=== PATIENT | female | born 1940 | race Caucasian/White ===

== ENCOUNTER 2021-11-16 10:50 | Inpatient (IN) ==
[2021-11-16 11:28] LABS: Basophils # (auto) 0.01 K/uL (0-0.2); Basophils % (auto) 0.2 %; Hematocrit (blood only) 38.6 % (37-47); Hemoglobin 12.6 g/dL (12.0-16.0); Immature Granulocytes # (auto) 0.11 K/uL (0.00-0.02); Immature Granulocytes % (auto) 1.8 %; Lymphocytes # (auto) 0.64 K/uL (1.2-3.4); Lymphocytes % (auto) 10.6 %; Mean Corpuscular Hgb Conc 32.6 g/dL (32-36); Mean Corpuscular Volume 91.9 fL (80-100); Mean Platelet Volume 11.9 fL (7.4-10.4); Monocytes # (auto) 0.51 K/uL (0.11-0.59); Monocytes % (auto) 8.5 %; Neutrophils # (auto) 4.75 K/uL (1.4-6.5); Neutrophils % (auto) 78.9 %; Nucleated RBC # (auto) 0.04 K/uL (0-0); Nucleated RBC % (auto) 0.7 %; Platelet Count 211 K/uL (130-400); RDW Coefficient of Variation 15.5 % (11.5-14.5); RDW Standard Deviation 52.5 fL (36.4-46.3); White Blood Count 6.02 K/uL (4.8-10.8)
[2021-11-16 11:41] LABS: INR 1.2 (0.9-1.1); Partial Thromboplastin Ratio 1.1; Partial Thromboplastin Time 29.6 Seconds (21.0-31.0); Prothrombin Time 12.2 Seconds (9.0-12.0)
--- NOTE | 2021-11-16 11:45 | XRay Report ---
XR chest 1V portable HISTORY: 81 years-old Female Resp sx c/w COVID-19 acute shortness of breath. COVID Positive. COMPARISON: None TECHNIQUE: Portable AP view of the chest FINDINGS: The cardiac silhouette is enlarged. Interstitial coarsening with patchy multifocal bilateral alveolar opacities. No pneumothorax or large pleural effusion. Degenerative changes of the shoulders and spin e. IMPRESSION: Cardiomegaly with moderate multifocal bilateral airspace opacities suggestive of viral pn eumonia. ACT 112: Negative or not required by law. The above report was generated using voice recognition software. It may contain grammatical, syntax o r spelling errors. Electronically signed by: Heriberto Hernández M.D. 11/16/2021 11:44 AM
[2021-11-16 12:02] LABS: Alanine Aminotransferase 79 U/L (7-52); Albumin Globulin Ratio 1.1 (0.9-2); Albumin Level 3.6 gm/dl (3.4-5.0); Alkaline Phosphatase 71 U/L (34-104); Anion Gap 11 (3-11); Aspartate Aminotransferase 107 U/L (13-39); BUN Creatinine Ratio 36.6 (10-20); Blood Urea Nitrogen 48 mg/dl (6-23); Calcium 8.7 mg/dl (8.5-10.1); Carbon Dioxide 27 mmol/L (21-32); Chloride 98 mmol/L (98-107); Est GFR (African American) 43.8 ml/min; Est GFR (Non-African American) 37.8 ml/min; Globulin 3.3 gm/dl (2.5-4.0); Glucose 160 mg/dl (70-99); Magnesium 2.3 mg/dl (1.7-2.4); Potassium 3.8 mmol/L (3.5-5.1); Sodium 136 mmol/L (136-145); Total Protein 6.9 gm/dl (6.0-8.3)
--- NOTE | 2021-11-16 12:02 | Emergency Department Note ---
History of Present Illness General Chief complaint: Shortness of Breath/Dyspnea Stated complaint: PULSE OX LEVEL 77, DR SPENCE Time Seen by Provider: 11/16/21 11:43 Source: patient, family (Son who is at the bedside), RN notes reviewed and old records reviewed Mode of arrival: ambulatory Limitations: no limitations History of Present Illness This patient is a 81-year-old female who is brought in after being hypoxemic. Her son has been checking her pulse ox at home and said it was at from 77-92 averaging about 85. Everybody in the house just got over a cold nobody was actually tested for COVID. She has had a cough off and on. In triage her O2 sat was 81% she was placed on 2 L nasal cannula and now is in the high 90s and says she feels fine. Her son thinks she may have forgotten to take some of her medications for her heart failure as she has been sick. She did not have the COVID-vaccine. She has had no weight gain or lower extremity pain or swelling. Denies chest pain. Denies fever although she does have a low-grade temperature 37.6 here. No diarrhea no vomiting. She is followed by Dr. Arana from a cardiac standpoint and her primary care physician is [facility] physician rust. Denies that she is on any blood thinners. Home Medications Medication Instructions Recorded Confirmed Type furosemide 40 mg tablet 40 mg PO QAM #90 tab 10/18/21 11/16/21 Rx levothyroxine 75 mcg tablet 75 mcg PO DAILY #90 tab 10/18/21 11/16/21 Rx (Synthroid) metoprolol succinate 50 mg 50 mg PO DAILY #90 tab 10/18/21 11/16/21 Rx tablet,extended release 24 hr sacubitril 24 mg-valsartan 26 mg 1 tab PO BID #180 tab 10/18/21 11/16/21 Rx tablet (Entresto) Allergies Allergy/AdvReac Type Severity Reaction Status Date / Time peanut Allergy Severe Anaphylaxis Verified 11/16/21 13:16 milk Allergy Intermediate Bloating/Di Verified 11/16/21 13:16 ahrea alcohol Allergy Mild skin Verified 11/16/21 13:16 flushing, red rash Iodinated Contrast Media Allergy Unknown Unknown Verified 11/16/21 13:16 Penicillins AdvReac Intermediate GI reaction Verified 11/16/21 13:16 Past Med/Surg History Medical History (Updated 11/16/21 @ 15:03 by Nikkie Abdalla PA-C) Gallbladder attack Heart failure with reduced ejection fraction Hypertension Left bundle branch block Moderate aortic regurgitation Moderate aortic stenosis Moderate tricuspid regurgitation Nonischemic cardiomyopathy EF 25-30% NSVT (nonsustained ventricular tachycardia) Surgical History H/O: hysterectomy Hx of cholecystectomy Hx of tonsillectomy Family History Other Alzheimer disease Denies family history of Ovarian cancer Prostate cancer Myocardial infarction Breast cancer Colorectal cancer Social History Smoking Status: Never smoker Second Hand Exposure: Yes; Hx Alcohol Use: No Hx Substance Use: No Visual Impairment: Partially Limited Hearing Ability: Hard of Hearing Beliefs That Will Affect Care: None marital status: / Current Living Situation: Family Current Living Situation Comment: lives with [employer] current occupational status: other current occupation: [employer] How many Children do You have: 1 How many Children do You have Comment: 2 boys Feels Safe at Home: Yes Childhood Exposure to Second-Hand Smoke: Yes during the past year weight has: decreased > 10 lbs Dental Care, Regularly: Yes Physical Activity Frequency: Does not Exercise Seatbelt Use: always Sunscreen Use: No Review of Systems A total of 10 systems reviewed and were otherwise negative Physical Exam Vital Signs Vital Signs - 24 hr 11/16/21 10:53 11/16/21 11:00 11/16/21 12:13 Temperature 37.6 C H Temperature Source Temporal Artery Scan Pulse Rate 98 H Pulse Rate from SpO2 Sensor Respiratory Rate 18 Respiratory Effort / Characteristics Non-Labored Respiratory Depth Normal Blood Pressure 120/92 Blood Pressure Mean 101 Pulse Oximetry 81 L 99 Oxygen Delivery Method Room Air Nasal Cannula Room Air Oxygen Flow Rate Sepsis Recent Fever Within 48 Hours No Sepsis New/Unexplained Change in Mental Status No Sepsis Action Taken by Nursing No Action Required Oxygen Flow Rate - Titration 2 Pulse Oximetry Post Tiitration 96 11/16/21 13:00 11/16/21 13:01 11/16/21 13:30 Temperature Temperature Source Pulse Rate 88 92 H 87 Pulse Rate from SpO2 Sensor 87 89 87 Respiratory Rate 23 25 H 21 Respiratory Effort / Characteristics Respiratory Depth Blood Pressure 146/88 H Blood Pressure Mean 107 Pulse Oximetry 98 97 96 Oxygen Delivery Method Nasal Cannula Nasal Cannula Nasal Cannula Oxygen Flow Rate 2 2 2 Sepsis Recent Fever Within 48 Hours Sepsis New/Unexplained Change in Mental Status Sepsis Action Taken by Nursing Oxygen Flow Rate - Titration Pulse Oximetry Post Tiitration 11/16/21 14:00 Temperature Temperature Source Pulse Rate 86 Pulse Rate from SpO2 Sensor 82 Respiratory Rate 20 Respiratory Effort / Characteristics Respiratory Depth Blood Pressure 145/113 H Blood Pressure Mean 123 Pulse Oximetry 91 Oxygen Delivery Method Nasal Cannula Oxygen Flow Rate 2 Sepsis Recent Fever Within 48 Hours Sepsis New/Unexplained Change in Mental Status Sepsis Action Taken by Nursing Oxygen Flow Rate - Titration Pulse Oximetry Post Tiitration General: Well developed well nourished older female who appears comfortable on supplemental oxygen in no acute distress, breathing comfortably on room air. Normal speech HEENT: Normal cephalic atraumatic. Pupils are equal round and reactive to light. Extraocular movements are intact. Oropharynx is pink with moist mucous membranes. No swelling of the mouth lips or tongue. Neck: Supple with a midline trachea. No meningeal signs or stiffness, no JVD or bruits. No Stridor. Chest: Clear to auscultation bilaterally with the exception of some crackles in the bases bilaterally but no increased work of breathing. Heart: Regular rate and rhythm without murmurs or gallops. Abdomen: Soft nontender, nondistended without rebound guarding or rigidity. Extremities: No cyanosis clubbing or edema. No calf tenderness or assymetry Spine/Back. Non tender to palpation. No CVA tenderness Skin: Good turgor without rashes. Neurologic exam: Cranial nerves two through 12 are intact. Motor and sensation are intact and symmetrical throughout. Course Administered Medications Remdesivir 200 mg/ Sodium (Chloride) 250 mls @ 125 mls/hr IV ONE STA; Protocol Stop: 11/16/21 15:40 Last Admin: 11/16/21 14:27 Dose: 125 mls/hr Documented by: [id number] Discontinued Medications Dexamethasone Sodium Phosphate (DexamethasonePf 10 Mg/Ml Vial) 6 mg IV NOW ONE Stop: 11/16/21 12:27 Last Admin: 11/16/21 12:38 Dose: 6 mg Documented by: [id number] Critical Care Time Critical Care Time: Yes Total Critical Care Time: 32 Due to the patient's hypoxemia, COVID, significant medical history is with needs for supplemental oxygen, IV medication, consultation, discussion with the family, I have personally spent greater than 32 minutes of critical care time in the direct management of this patient. This includes bedside care, interpretation of diagnostic studies, and testing, discussion with consultants, patient, and family members, and other required patient management activities. This 32 minutes is in excess of all separately billable procedures. Medical Decision Making Differential Diagnosis COVID, CHF, acute coronary syndrome, pneumonia, sepsis, electrolyte or metabolic abnormality Medical Records Attestation: I reviewed the patient's medical records. Home Medications Current Medication List: was personally reviewed by me Laboratory Data Attestation: I reviewed the patient's lab results. Result diagrams: 11/16/21 11:15 11/16/21 11:15 Lab Results 11/16/21 11/16/21 11/16/21 Range/Units 11:00 11:15 11:15 WBC 6.02 (4.8-10.8) K/uL RBC 4.20 (4.2-5.4) M/uL Hgb 12.6 (12.0-16.0) g/dL Hct 38.6 (37-47) % MCV 91.9 (80-100) fL MCH 30.0 (25-34) pg MCHC 32.6 (32-36) g/dL RDW Std Deviation 52.5 H (36.4-46.3) fL RDW Coeff of Keanu 15.5 H (11.5-14.5) % Plt Count 211 (130-400) K/uL MPV 11.9 H (7.4-10.4) fL Immature Gran % (Auto) 1.8 % Neut % (Auto) 78.9 % Lymph % (Auto) 10.6 % [place] % (Auto) 8.5 % Eos % (Auto) 0.0 % Baso % (Auto) 0.2 % Neut # (Auto) 4.75 (1.4-6.5) K/uL Lymph # (Auto) 0.64 L (1.2-3.4) K/uL [place] # (Auto) 0.51 (0.11-0.59) K/uL Eos # (Auto) 0.00 (0-0.5) K/uL Baso # (Auto) 0.01 (0-0.2) K/uL Immature Gran # (Auto) 0.11 H (0.00-0.02) K/uL Absolute Nucleated RBC 0.04 H (0-0) K/uL Nucleated RBC % (auto) 0.7 % PT 12.2 H (9.0-12.0) Seconds INR 1.2 H (0.9-1.1) APTT 29.6 (21.0-31.0) Seconds PTT Ratio 1.1 Sodium (136-145) mmol/L Potassium (3.5-5.1) mmol/L Chloride (98-107) mmol/L Carbon Dioxide (21-32) mmol/L Anion Gap (3-11) BUN (6-23) mg/dl Creatinine (0.6-1.2) mg/dl Est Cr Clr Drug Dosing Est GFR ( Amer) ml/min Est GFR (Non-Af Amer) ml/min BUN/Creatinine Ratio (10-20) Glucose (70-99) mg/dl Calcium (8.5-10.1) mg/dl Magnesium (1.7-2.4) mg/dl Total Bilirubin (0.2-1.0) mg/dl AST (13-39) U/L ALT (7-52) U/L Alkaline Phosphatase (34-104) U/L Troponin I (0-0.04) ng/ml Total Protein (6.0-8.3) gm/dl Albumin (3.4-5.0) gm/dl Globulin (2.5-4.0) gm/dl Albumin/Globulin Ratio (0.9-2) SARS-CoV-2 (PCR) POSITIVE A* (Negative) Influenza Type A (PCR) Negative (Neg) Influenza Type B (PCR) Negative (Neg) RSV (RT-PCR) Negative (Neg) 11/16/21 Range/Units 11:15 WBC (4.8-10.8) K/uL RBC (4.2-5.4) M/uL Hgb (12.0-16.0) g/dL Hct (37-47) % MCV (80-100) fL MCH (25-34) pg MCHC (32-36) g/dL RDW Std Deviation (36.4-46.3) fL RDW Coeff of Keanu (11.5-14.5) % Plt Count (130-400) K/uL MPV (7.4-10.4) fL Immature Gran % (Auto) % Neut % (Auto) % Lymph % (Auto) % [place] % (Auto) % Eos % (Auto) % Baso % (Auto) % Neut # (Auto) (1.4-6.5) K/uL Lymph # (Auto) (1.2-3.4) K/uL [place] # (Auto) (0.11-0.59) K/uL Eos # (Auto) (0-0.5) K/uL Baso # (Auto) (0-0.2) K/uL Immature Gran # (Auto) (0.00-0.02) K/uL Absolute Nucleated RBC (0-0) K/uL Nucleated RBC % (auto) % PT (9.0-12.0) Seconds INR (0.9-1.1) APTT (21.0-31.0) Seconds PTT Ratio Sodium 136 (136-145) mmol/L Potassium 3.8 (3.5-5.1) mmol/L Chloride 98 (98-107) mmol/L Carbon Dioxide 27 (21-32) mmol/L Anion Gap 11 (3-11) BUN 48 H (6-23) mg/dl Creatinine 1.31 H (0.6-1.2) mg/dl Est Cr Clr Drug Dosing Not Reportable Est GFR ( Amer) 43.8 ml/min Est GFR (Non-Af Amer) 37.8 ml/min BUN/Creatinine Ratio 36.6 H (10-20) Glucose 160 H (70-99) mg/dl Calcium 8.7 (8.5-10.1) mg/dl Magnesium 2.3 (1.7-2.4) mg/dl Total Bilirubin 2.0 H (0.2-1.0) mg/dl AST 107 H (13-39) U/L ALT 79 H (7-52) U/L Alkaline Phosphatase 71 (34-104) U/L Troponin I 0.17 H* (0-0.04) ng/ml Total Protein 6.9 (6.0-8.3) gm/dl Albumin 3.6 (3.4-5.0) gm/dl Globulin 3.3 (2.5-4.0) gm/dl Albumin/Globulin Ratio 1.1 (0.9-2) SARS-CoV-2 (PCR) (Negative) Influenza Type A (PCR) (Neg) Influenza Type B (PCR) (Neg) RSV (RT-PCR) (Neg) Imaging Data Attestation: I personally reviewed and interpreted this imaging study as follows: My Impression: Chest x-raycardiomegaly with diffuse infiltrates likely consistent with COVID. There may be a superimposed CHF component as well Radiologist's Impression: Chest X-Ray 11/16/21 11:01 XR chest 1V portable HISTORY: 81 years-old Female Resp sx c/w COVID-19 acute shortness of breath. COVID Positive. COMPARISON: None TECHNIQUE: Portable AP view of the chest FINDINGS: The cardiac silhouette is enlarged. Interstitial coarsening with patchy multifocal bilateral alveolar opacities. No pneumothorax or large pleural effusion. Degenerative changes of the shoulders and spine. IMPRESSION: Cardiomegaly with moderate multifocal bilateral airspace opacities suggestive of viral pneumonia. ACT 112: Negative or not required by law. The above report was generated using voice recognition software. It may contain grammatical, syntax or spelling errors. Electronically signed by: Heriberto Hernández M.D. 11/16/2021 11:44 AM ECG Data Attestation: I personally reviewed and interpreted this ECG as follows: Indication: + SOB/dyspnea Rate (beats per minute): 93 ECG Intervals/blocks: + Left bundle branch block and + Normal SC ECG [place]: + Left axis deviation ECG ST segments: + Nonspecific ST abnormalities ECG Findings: no PACs or no PVCs Comparison ECG Date: no prior available MDM Narrative This patient is a an 81-year-old female who was brought in after having hypoxemia at home. She has not had the COVID-vaccine but has had a cough for a few days. she also has a history of CHF and may not be taking her medication. She does not have a significant peripheral edema or weight gain. Given her low- grade temperature and her hypoxemia and her chest x-ray, I am concerned about COVID she has been COVID swabbed. I am also concerned about cardiac events/CHF. Her chest x-ray suggest COVID. IV access was established and blood work was obtained. She was reassessed frequently. EKG shows a baseline bundle branch block. Troponin is mildly elevated. She has no significant electrolyte or metabolic abnormalities. COVID testing did come back and was positive. Her troponin is also mildly elevated although she has no chest pain. Again its possible she has a mild acute congestive heart component as well. Given that she is hypoxemic she has been on oxygen here as well as I did give 6 mg of Decadron IV. I have consulted the [facility] hospitalist to see her in the ER for admission and further evaluation Continuous cardiac monitoring: Orders placed in EMR for continuous accounting manager cpa. Upon my interpretation normal sinus rhythm with a left bundle branch block and a rate of 98 Impression & Plan COVID, Hypoxemia, Heart failure with reduced ejection fraction, Left bundle branch block Discharge Plan Visit Data Chief Complaint: Shortness of Breath/Dyspnea Stated Complaint: PULSE OX LEVEL 77, RFR'D ED Provider: Ryan Velazquez Discharge Problem: COVID, Hypoxemia, Heart failure with reduced ejection fraction, Left bundle branch block Forms Stand Alone Forms: My [facility] Prescriptions Prescriptions: No Action metoprolol succinate 50 mg tablet extended release 24 hr 50 mg PO DAILY Qty: 90 RF: 3 Entresto 24-26 mg tablet 1 tab PO BID Qty: 180 RF: 3 furosemide 40 mg tablet 40 mg PO QAM Qty: 90 RF: 3 levothyroxine [Synthroid] 75 mcg tablet 75 mcg PO DAILY Qty: 90 RF: 3 Referrals Referrals: Leonor Ken MD [Primary Care Provider] -
[2021-11-16 12:13] LABS: Troponin I 0.17 ng/ml (0-0.04)
[2021-11-16 12:18] LABS: Influenza A virus by PCR Negative (Neg); Influenza B virus by PCR Negative (Neg); RSV by PCR Negative (Neg)
[2021-11-16 12:23] LABS: SARS CoV2 RNA(COVID-19) InHosp POSITIVE (Negative)
[2021-11-16] MEDS ORDERED: dexAMETHasone**PF** 10 MG/ML VIAL IV ONE (12:26)
--- NOTE | 2021-11-16 13:23 | History & Physical Report ---
Date of Service November 16, 2021 Assessment & Plan (1) COVID-19: Plan: -Positive in emergency department. Given the that she has felt unwell with known COVID-19 symptoms since [place] and the fact that potential contacts have not test for COVID-19, it is difficult to determine what day of illness this is. -Isolation precautions. -Decadron 6 mg IV daily. -Remdesivir started. -Patient is currently 99% on 2L NC. -Ferritin, fibrinogen, LDH, and CRP ordered. -Lovenox 40 mg SC Q12 for thromboprophylaxis (2) Pneumonia: Plan: -CXR revealed b/l multilobar opacities consistent with a viral pneumonia. WBC count is not elevated, making a bacterial pneumonia less likely, however it is still possible that patient has developed bacterial pneumonia on top of viral pneumonia -Patient empirically started on azithromycin 500 mg IV QD. (3) Hypoxemia: Plan: -Patient was 81% on RA upon arrival, is now at 99% on 2L NC. She does not use supplemental O2 at home. -Likely as a result of her COVID-19 and multilobar pneumonia seen on CXR. -See above plan for 'COVID-19' and 'Pneumonia' (4) Elevated troponin: Plan: 0.17 in ED. Patient denies chest pain, palpitations. Repeat troponin Q8 x2. (5) Heart failure with reduced ejection fraction: Plan: -Most recent echo is from 2019 and shows EF of 15-20%. -CXR demonstrates cardiomegaly, which may indicate CHF, however the clinical picture does not correlate with this. Patient did miss her Lasix this morning, but reports compliance over the last week. She does not appear to be volume overloaded, skin is warm and dry. JVD was not appreciated on exam, 1+ edema appreciated, per son this is her baseline. Crackles heard on lung auscultation which could be CHF vs viral pneumonia, most likely due to COVID-19 infection. -Continue home dose of PO Lasix 40 mg starting today, as patient missed her home dose today. -Continue Entresto. -Daily weights -Low sodium/heart healthy diet. (6) Acute kidney injury: Plan: -Acute on chronic. BUN 48, Cr 1.31, increased from 28 and .99 in October 2021. DAYAN stage 1. BUN:Cr 36.6 -Pre-renal CORKY possibly due to HF exacerbation resulting in decreased renal perfusion vs hypovolemia/dehydration due to recent illness. More likely a result of hypovolemia/dehydration as patient does not appear to be hypervolemic. -LR's at 80 cc/hr. -Avoid nephrotoxic medications. -Repeat CMP in AM (7) Transaminitis: Plan: -AST 107, ALT 79 both acutely elevated from October 2021 (AST 22, ALT 38) -Patient does not have a history of elevated LFTs, however this is a known symptom of the COVID-19 virus. -Repeat LFTs in AM (8) Chronic kidney disease (CKD), stage III (moderate): Plan: See above 'acute kidney injury'. (9) Hypertension: Plan: -Continue metoprolol XR daily -Continue Entresto BID (10) Hypothyroidism: Plan: -Continue levothyroxine 75 mcg (11) DVT prophylaxis: Plan: -SCDs -Lovenox 40 mg SC Q12 History of Present Illness Chief Complaint: hypoxemia Primary Care Provider: Leonor Ken MD Patient is an 81 y/o female with a PMH of HFrEF with EF 15-20%, CKD3, HTN, and hypothyroidism who presents today from home due to hypoxemia x2 days. Patient has been feeling generally unwell since around [place], citing fatigue, sore throat, and cough as her symptoms. She was not tested for COVID-19, and her symptoms remained mild, as she eventually recovered over the past week at home without medication. Pt lives at home with her son, who was sick with similar symptoms last week, but has recovered without complications. He was not tested for COVID-19. Patient was quarantined on a separate floor from her son, but is not vaccinated. Over the past two days experienced SOB and extreme fatigue. Her son is at bedside and notes she has seemed confused as well. Patient denies fever/chills, sinus congestion, rhinorrhea, N/V/D, weight gain, orthopnea, and paroxysmal nocturnal dyspnea. Her son has been monitoring her oxygen saturations at home and notes they average in the 80s on RA. She is not on supplemental O2 at home. Patient's SpO2 upon arrival to ED was 81% on RA. She was placed on 2L NC and improved to 99%. Patient's COVID-19 test in ED was positive. Given the length of her illness and the fact that potential contacts have not test for COVID-19, it is difficult to determine what day of illness this is. Allergies Allergy/AdvReac Type Severity Reaction Status Date / Time peanut Allergy Severe Anaphylaxis Verified 11/16/21 13:16 milk Allergy Intermediate Bloating/Di Verified 11/16/21 13:16 ahrea alcohol Allergy Mild skin Verified 11/16/21 13:16 flushing, red rash Iodinated Contrast Media Allergy Unknown Unknown Verified 11/16/21 13:16 Penicillins AdvReac Intermediate GI reaction Verified 11/16/21 13:16 Home Medications Medication Instructions Recorded Confirmed Type furosemide 40 mg tablet 40 mg PO QAM #90 tab 10/18/21 11/16/21 Rx levothyroxine 75 mcg tablet 75 mcg PO DAILY #90 tab 10/18/21 11/16/21 Rx (Synthroid) metoprolol succinate 50 mg 50 mg PO DAILY #90 tab 10/18/21 11/16/21 Rx tablet,extended release 24 hr sacubitril 24 mg-valsartan 26 mg 1 tab PO BID #180 tab 10/18/21 11/16/21 Rx tablet (Entresto) Past Med/Surg History Medical History (Updated 11/16/21 @ 15:03 by Nikkie Abdalla PA-C) Gallbladder attack Heart failure with reduced ejection fraction Hypertension Left bundle branch block Moderate aortic regurgitation Moderate aortic stenosis Moderate tricuspid regurgitation Nonischemic cardiomyopathy EF 25-30% NSVT (nonsustained ventricular tachycardia) Surgical History H/O: hysterectomy Hx of cholecystectomy Hx of tonsillectomy Family History Other Alzheimer disease Denies family history of Ovarian cancer Prostate cancer Myocardial infarction Breast cancer Colorectal cancer Social History Smoking Status: Never smoker Second Hand Exposure: Yes; Hx Alcohol Use: No Hx Substance Use: No Preferred Language: Ivorian Communication Ability: Effective Visual Impairment: Partially Limited Hearing Ability: Hard of Hearing Automobile Mechanic Motor Required: No Beliefs That Will Affect Care: None marital status: / Current Living Situation: Family Current Living Situation Comment: Home with son Jessee to help care current occupational status: other current occupation: Health Insurance Sales Agent How many Children do You have: 1 How many Children do You have Comment: 2 boys Other Information That Helps Us Care for You: No Feels Safe at Home: Yes Safety Concerns: Feels Safe At This Time Childhood Exposure to Second-Hand Smoke: Yes during the past year weight has: decreased > 10 lbs Dental Care, Regularly: Yes Physical Activity Frequency: Does not Exercise Seatbelt Use: always Sunscreen Use: No Assistive Devices: Glasses, Oxygen - Continuous and Walker Assistive Devices Comment: Oxygen new r/t COVID infection. Review of Systems Review of Systems: Constitutional: Endorses fatigue; No fever, sweats or chills Eyes: No diplopia, no worsening or blurred vision ENT: Endorses sore throat; normal hearing, no trouble swallowing Respiratory: Endorses mild cough with sputum and SOB; denies dyspnea at rest or on exertion Cardiovascular: No chest pain, tightness or palpitations Abdomen: No pain, nausea, vomiting, diarrhea or constipation Musculoskeletal: No joint pain, calf pain, swelling Neurologic: No weakness, numbness/tingling, or balance problems Psychiatric: No anxiety or depression Skin: No rash or itch Physical Exam Physical Exam: General: awake, alert, no apparent distress, patient has on 2L NC. Patient is able to speak in complete sentences without difficulty with head of bed < 45 degrees Head: Normocephalic, atraumatic ENT: PERRL, EOMI, no pharyngeal exudate, mucous membranes moist Chest: diffuse crackles heard throughout b/l lung cavazos Cardiac: Regular rate and rhythm, no murmur, , normal peripheral pulses, good capillary refill Abdominal: NABS x 4 quadrants, soft, nontender to palpation, no rebound, guarding or tenderness Extremities: 1+ peripheral edema of lower extremities; no erythema, calfs nontender to palpation Psych: Normal mood and affect Neuro: AAO x 3, strength intact bilaterally and rated 5/5, no motor deficits, speech is clear, no peripheral sensory deficits Skin: warm, no rash or erythema Results & Data Results & Data ([facility]) Vital Signs (Past 12 Hours) Vital Signs Temp Pulse Resp BP Pulse Ox 11/16/21 12:13 99 11/16/21 10:53 37.6 C H 98 H 18 120/92 81 L Laboratory Results Abnormal lab results 11/16/21 11/16/21 11/16/21 Range/Units 11:00 11:15 11:15 RDW Std Deviation 52.5 H (36.4-46.3) fL RDW Coeff of Keanu 15.5 H (11.5-14.5) % MPV 11.9 H (7.4-10.4) fL Lymph # (Auto) 0.64 L (1.2-3.4) K/uL Immature Gran # (Auto) 0.11 H (0.00-0.02) K/uL Absolute Nucleated RBC 0.04 H (0-0) K/uL PT 12.2 H (9.0-12.0) Seconds INR 1.2 H (0.9-1.1) BUN (6-23) mg/dl Creatinine (0.6-1.2) mg/dl BUN/Creatinine Ratio (10-20) Glucose (70-99) mg/dl Total Bilirubin (0.2-1.0) mg/dl AST (13-39) U/L ALT (7-52) U/L Troponin I (0-0.04) ng/ml SARS-CoV-2 (PCR) POSITIVE A* (Negative) 11/16/21 Range/Units 11:15 RDW Std Deviation (36.4-46.3) fL RDW Coeff of Keanu (11.5-14.5) % MPV (7.4-10.4) fL Lymph # (Auto) (1.2-3.4) K/uL Immature Gran # (Auto) (0.00-0.02) K/uL Absolute Nucleated RBC (0-0) K/uL PT (9.0-12.0) Seconds INR (0.9-1.1) BUN 48 H (6-23) mg/dl Creatinine 1.31 H (0.6-1.2) mg/dl BUN/Creatinine Ratio 36.6 H (10-20) Glucose 160 H (70-99) mg/dl Total Bilirubin 2.0 H (0.2-1.0) mg/dl AST 107 H (13-39) U/L ALT 79 H (7-52) U/L Troponin I 0.17 H* (0-0.04) ng/ml SARS-CoV-2 (PCR) (Negative) Diagnostic Findings Chest X-Ray 11/16/21 11:01 XR chest 1V portable HISTORY: 81 years-old Female Resp sx c/w COVID-19 acute shortness of breath. COVID Positive. COMPARISON: None TECHNIQUE: Portable AP view of the chest FINDINGS: The cardiac silhouette is enlarged. Interstitial coarsening with patchy multifocal bilateral alveolar opacities. No pneumothorax or large pleural effusion. Degenerative changes of the shoulders and spine. IMPRESSION: Cardiomegaly with moderate multifocal bilateral airspace opacities suggestive of viral pneumonia. ACT 112: Negative or not required by law. The above report was generated using voice recognition software. It may contain grammatical, syntax or spelling errors. Electronically signed by: Heriberto Hernández M.D. 11/16/2021 11:44 AM ECG Additional Comments: Sinus rhythm with Premature atrial complexes Left axis deviation Left ventricular hypertrophy with QRS widening and repolarization abnormality Abnormal ECG No previous ECGs available Code Status & VTE Plan Code Status Full Code Supervising Physician Co-Signing Physician Notes Patient was seen and examined independently I discussed the case with Nikkie GIORDANO I reviewed pertinent past medical social family history and also the plan of care and agree with the plan of care. This pt is mildly short of breath and hypoxic, does not know were she was exposed to covid lungs have some rales seemingly most consistent with covid, no jvd to support heart failure First symptoms: ~days to a week First tested: in our system 11/16/21 Vaccinated: No Admission date: 11/16/21 Admission O2 requirement: 2L Admission CRP: 10.64 Dexamethasone course started:11/16/21 Remdesivir started: 11/16/21 Tocilizumab given/baricitinib started: not qualified at this time Antibiotics: azithromycin Pt has here with heart failure, seems stable at this time, continue entresto lasix and metoprolol Any exceptions will be noted below PG Care Time/CCT Total # of Minutes Spent Total Time Spent with Patient: Total time spent is greater than 50% in coordination of care (as documented) at patient's floor/unit and/or counseling patient: Coding Level of Care Code 40225 Initial Inpt Care Lvl 3 Diagnoses Hypoxemia R09.02 Chronic kidney disease (CKD), stage III (moderate) N18.3 Hypertension I10 Heart failure with reduced ejection fraction I50.20 Hypothyroidism E03.9 COVID-19 U07.1 Pneumonia J18.9 Acute kidney injury N17.9 Transaminitis R74.01 Elevated troponin R77.8 DVT prophylaxis Z29.9
[2021-11-16] MEDS ORDERED: REMDESIVIR 200 MG in SODIUM CHLORIDE 0.9% 210 ML IV STA (13:41)
[2021-11-16] MEDS ORDERED: SODIUM CHLORIDE 0.9% 10ML FLUSH IV SCH (13:45)
[2021-11-16] MEDS ORDERED: LACTATED RINGER'S 1,000 ML IV ONE (15:09)
[2021-11-16 15:28] LABS: Troponin I 0.17 ng/ml (0-0.04)
[2021-11-16 15:50] LABS: Fibrinogen 486 mg/dl (184-400)
[2021-11-16] MEDS: FUROSEMIDE 40 MG TAB PO SCH (16:38)
[2021-11-16] MEDS ORDERED: ONDANSETRON INJ 2 MG/ML 2 ML VIAL IV PRN (17:58)
[2021-11-16] MEDS ORDERED: POLYETHYLENE (MIRALAX) 17 GM PACK PO PRN (17:58)
[2021-11-16] MEDS ORDERED: ALUMINUM/MAGNESIUM SUSP 30 ML UDC PO PRN (17:58)
[2021-11-16] MEDS: METOPROLOL SUCC 50MG EXT REL TAB PO SCH (18:00)
[2021-11-16] MEDS ORDERED: PATIENT'S HEIGHT AND/OR WEIGHT NEEDED SCH (18:15)
--- NOTE | 2021-11-16 18:25 | Electrocardiogram Report ---
Test Reason : Blood Pressure : / mmHG Vent. Rate : 093 BPM Atrial Rate : 093 BPM P-R Int : 160 ms QRS Dur : 168 ms QT Int : 412 ms P-R-T Axes : 069 -59 104 degrees QTc Int : 512 ms Poor data quality, interpretation may be adversely affected Sinus rhythm with Premature atrial complexes Left axis deviation Left ventricular hypertrophy with QRS widening and repolarization abnormality Abnormal ECG No previous ECGs available Confirmed by Jd Esteban ([id number]) on 11/16/2021 6:25:23 PM Referred By: Confirmed By:Jd Esteban
[2021-11-16] MEDS: AZITHROMYCIN 500 MG in DEXTROSE 5% 250 ML IV SCH (18:34)
[2021-11-16 18:48] LABS: Fibrinogen 467 mg/dl (184-400)
[2021-11-16] MEDS ORDERED: PNEUMOCOCCAL POLYSACCHARIDES 25 MCG/0.5 ML VIAL/SYR IM ONE (19:19)
[2021-11-16] MEDS: LEVOTHYROXINE SODIUM 75 MCG TABLET PO SCH (19:33)
[2021-11-16] MEDS: VALSARTAN/SACUBITRIL 26/24MG TAB PO SCH (20:06)
[2021-11-16] MEDS: ENOXAPARIN INJ 40 MG/0.4 ML SYR SQ SCH (20:07)
[2021-11-17 07:30] LABS: INR 1.2 (0.9-1.1); Prothrombin Time 11.9 Seconds (9.0-12.0)
[2021-11-17 07:43] LABS: Albumin Globulin Ratio 1.1 (0.9-2); BUN Creatinine Ratio 47.5 (10-20); Bilirubin,Total 1.3 mg/dl (0.2-1.0); Calcium 8.1 mg/dl (8.5-10.1); Creatinine Clr Calc Pharmacy 39.8 ml/min; Est GFR (Non-African American) 51.8 ml/min; Globulin 2.8 gm/dl (2.5-4.0); Potassium 3.4 mmol/L (3.5-5.1); Total Protein 5.8 gm/dl (6.0-8.3)
[2021-11-17] MEDS: LEVOTHYROXINE SODIUM 75 MCG TABLET PO SCH (09:02)
[2021-11-17] MEDS: VALSARTAN/SACUBITRIL 26/24MG TAB PO SCH ×2 (09:02→20:02)
[2021-11-17] MEDS: dexAMETHasone 6 MG in SYRINGE 0 ML IV SCH (09:02)
[2021-11-17] MEDS ORDERED: POTASSIUM CHLORIDE CRTAB 20 MEQ TABCR PO STA (10:27)
[2021-11-17] MEDS: METOPROLOL SUCC 50MG EXT REL TAB PO SCH (11:01)
[2021-11-17] MEDS: FUROSEMIDE 40 MG TAB PO SCH (11:52)
[2021-11-17] MEDS: REMDESIVIR 100 MG in SODIUM CHLORIDE 0.9% 230 ML IV SCH (12:19)
--- NOTE | 2021-11-17 16:04 | Hospitalist Progress Note ---
Date of Service November 17, 2021 Assessment & Plan (1) COVID-19: Plan: -Positive in emergency department. Given the that she has felt unwell with known COVID-19 symptoms since and the fact that potential contacts have not test for COVID-19, it is difficult to determine what day of illness this is. Remains on 2 L nasal cannula CRP quite elevated 10, ferritin elevated in the Chest x-ray with bilateral multifocal pneumonia, but does not seem to be in any respiratory distress -Continue azithromycin in case of secondary bacterial pneumonia -Isolation precautions. -Continue Decadron 6 mg IV daily. -Continue Remdesivir -Lovenox 40 mg SC Q12 for thromboprophylaxis -Advised prone or side positioning rather than lying flat on her back -Follow CBC, CMP, CRP in the morning -Continue supplemental O2 to keep pulse ox greater than 92% (2) Pneumonia: Plan: -CXR revealed b/l multilobar opacities consistent with a viral pneumonia. WBC count is not elevated, making a bacterial pneumonia less likely, however it is still possible that patient has developed bacterial pneumonia on top of viral pneumonia -Patient empirically started on azithromycin 500 mg IV QD. (3) Hypoxemia: Plan: -Patient was 81% on RA upon arrival, is now at 99% on 2L NC. She does not use supplemental O2 at home. -Likely as a result of her COVID-19 and multilobar pneumonia seen on CXR. -See above plan for 'COVID-19' and 'Pneumonia' (4) Elevated troponin: Plan: demand ischemia Troponin was 0.17 in ED. repeat this morning down to 0.07 Patient denies chest pain, palpitations. Acute [place] ruled out (5) Heart failure with reduced ejection fraction: Plan: -Most recent echo is from 2019 and shows EF of 15-20%. -CXR demonstrates cardiomegaly, which may indicate CHF, however the clinical picture does not correlate with this. She does not appear to be volume overloaded, skin is warm and dry. JVD was not appreciated on exam, 2+ edema appreciated which is her baseline. -Continue Entresto, metoprolol. -Daily weights, strict I/Os -Low sodium/heart healthy diet. (6) Acute kidney injury: Plan: -Acute on chronic. BUN 48, Cr 1.31, increased from 28 and .99 in October 2021. DAYAN stage 1. BUN:Cr 36.6 -Pre-renal CORKY possibly due to HF exacerbation resulting in decreased renal perfusion vs hypovolemia/dehydration due to recent illness. Creatinine down to 1.01 -Avoid nephrotoxic medications. -Repeat CMP in AM (7) Transaminitis: Plan: -AST 107, ALT 79 both acutely elevated from October 2021 (AST 22, ALT 38) Total bilirubin elevated on arrival 2.0 now down to 1.3 -Patient does not have a history of elevated LFTs, however this is a known sign of the COVID-19 virus. LFTs are trending downward today to include total bilirubin down to 1.3 I do believe this is all related to hepatic congestion from severe heart failure Improving now with diuresis -Repeat LFTs in AM (8) Chronic kidney disease (CKD), stage III (moderate): Plan: See above 'acute kidney injury'. (9) Hypertension: Plan: -Continue metoprolol XR daily -Continue Entresto BID (10) Hypothyroidism: Plan: -Continue levothyroxine 75 mcg TSH is normal (11) Hypokalemia: Plan: Mildly low Replace with oral potassium chloride Follow BMP in the morning (12) DVT prophylaxis: Plan: -SCDs -Lovenox 40 mg SC Q12 Plan: Disposition-continue to stay on telemetry COVID unit. We will consult PT/OT Admission and Anticipated Discharge Date Admission Date: November 16, 2021 Subjective Patient reports that she slept most of the morning and is just waking up, has not eaten a whole lot today. Denies chest pains or shortness of breath. She does remain on 2 L nasal cannula of oxygen. Denies nausea or abdominal pains. Telemetry with sinus rhythm, IVCD, rates in the 60s to 70s Review of Systems Review of Systems: All systems reviewed & are unremarkable except as noted in HPI & below Physical Exam Constitutional: WD/WN, vitals as above + obese Eyes: + anicteric sclerae ENMT: external ear and nose normal, oropharynx normal Neck: trachea midline, no thyromegaly Respiratory: normal respiratory effort, lungs clear to auscultation Cardiovascular: RRR, no murmur, no edema Chest (Breasts): Chest: normal inspection of chest Gastrointestinal (Abdomen): normal bowel sounds, soft, nontender, no hepatosplenomegaly Musculoskeletal: Extremities: extremities normal to inspection; no cyanosis and no clubbing Skin: no rashes, warm and dry Neurologic: moves all extremities and awake; no focal motor deficits Psychiatric: Orientation: alert, oriented to person, oriented to place and cooperative Lymphatic: no lymphedema Results & Data Results & Data ([facility]) Vital Signs (Past 12 Hours) Vital Signs Temp Pulse Resp BP Pulse Ox 11/17/21 15:20 78 20 106/70 97 11/17/21 11:23 36.4 C L 74 20 103/72 97 11/17/21 07:36 36.4 C L 76 20 102/74 96 Laboratory Results 11/17/21 11/17/21 11/17/21 Range/Units 06:26 06:26 06:26 PT 11.9 (9.0-12.0) Seconds INR 1.2 H (0.9-1.1) Sodium 139 (136-145) mmol/L Potassium 3.4 L (3.5-5.1) mmol/L Chloride 102 (98-107) mmol/L Carbon Dioxide 29 (21-32) mmol/L Anion Gap 8 (3-11) BUN 48 H (6-23) mg/dl Creatinine 1.01 D (0.6-1.2) mg/dl Est Cr Clr Drug Dosing 39.8 ml/min Est GFR ( Amer) 60.0 ml/min Est GFR (Non-Af Amer) 51.8 ml/min BUN/Creatinine Ratio 47.5 H (10-20) Glucose 150 H (70-99) mg/dl Calcium 8.1 L (8.5-10.1) mg/dl Ferritin Total Bilirubin 1.3 H (0.2-1.0) mg/dl AST 68 H (13-39) U/L ALT 58 H (7-52) U/L Alkaline Phosphatase 62 (34-104) U/L Troponin I 0.07 H* (0-0.04) ng/ml Total Protein 5.8 L (6.0-8.3) gm/dl Albumin 3.0 L (3.4-5.0) gm/dl Globulin 2.8 (2.5-4.0) gm/dl Albumin/Globulin Ratio 1.1 (0.9-2) 01/13/22 01/13/22 Range/Units 11:00 11:00 PT (9.0-12.0) Seconds INR (0.9-1.1) Sodium (136-145) mmol/L Potassium (3.5-5.1) mmol/L Chloride (98-107) mmol/L Carbon Dioxide (21-32) mmol/L Anion Gap (3-11) BUN (6-23) mg/dl Creatinine (0.6-1.2) mg/dl Est Cr Clr Drug Dosing ml/min Est GFR ( Amer) ml/min Est GFR (Non-Af Amer) ml/min BUN/Creatinine Ratio (10-20) Glucose (70-99) mg/dl Calcium (8.5-10.1) mg/dl Ferritin 2423.0 H Cancelled Total Bilirubin (0.2-1.0) mg/dl AST (13-39) U/L ALT (7-52) U/L Alkaline Phosphatase (34-104) U/L Troponin I (0-0.04) ng/ml Total Protein (6.0-8.3) gm/dl Albumin (3.4-5.0) gm/dl Globulin (2.5-4.0) gm/dl Albumin/Globulin Ratio (0.9-2) PG Care Time/CCT Total # of Minutes Spent Total Time Spent with Patient: Total time spent is greater than 50% in coordination of care (as documented) at patient's floor/unit and/or counseling patient: Coding Level of Care Code 97597 Subseq Hosp Care Lvl 3 Diagnoses COVID-19 U07.1 Pneumonia J18.9 Hypoxemia R09.02 Elevated troponin R77.8 Heart failure with reduced ejection fraction I50.20 Acute kidney injury N17.9 Transaminitis R74.01 Chronic kidney disease (CKD), stage III (moderate) N18.3 Hypertension I10 Hypothyroidism E03.9 DVT prophylaxis Z29.9 Hypokalemia E87.6
[2021-11-17] MEDS: AZITHROMYCIN 500 MG in DEXTROSE 5% 250 ML IV SCH (19:11)
[2021-11-17] MEDS: ENOXAPARIN INJ 40 MG/0.4 ML SYR SQ SCH (19:12)
[2021-11-18 06:22] LABS: Basophils # (auto) 0.02 K/uL (0-0.2); Basophils % (auto) 0.3 %; Hematocrit (blood only) 39.1 % (37-47); Hemoglobin 12.6 g/dL (12.0-16.0); Immature Granulocytes % (auto) 1.3 %; Lymphocytes # (auto) 0.55 K/uL (1.2-3.4); Mean Corpuscular Hgb Conc 32.2 g/dL (32-36); Mean Corpuscular Volume 93.1 fL (80-100); Mean Platelet Volume 12.2 fL (7.4-10.4); Monocytes # (auto) 0.67 K/uL (0.11-0.59); Monocytes % (auto) 8.5 %; Neutrophils # (auto) 6.53 K/uL (1.4-6.5); Neutrophils % (auto) 82.9 %; Platelet Count 243 K/uL (130-400); RDW Coefficient of Variation 15.4 % (11.5-14.5); RDW Standard Deviation 52.6 fL (36.4-46.3); White Blood Count 7.87 K/uL (4.8-10.8)
[2021-11-18 06:44] LABS: Albumin Globulin Ratio 1.1 (0.9-2); Albumin Level 3.1 gm/dl (3.4-5.0); BUN Creatinine Ratio 45.9 (10-20); Bilirubin,Total 1.2 mg/dl (0.2-1.0); Calcium 8.3 mg/dl (8.5-10.1); Creatinine Clr Calc Pharmacy 33.3 ml/min; Est GFR (African American) 47.8 ml/min; Est GFR (Non-African American) 41.2 ml/min; Globulin 2.7 gm/dl (2.5-4.0); Potassium 4.1 mmol/L (3.5-5.1); Total Protein 5.8 gm/dl (6.0-8.3)
[2021-11-18] MEDS: METOPROLOL SUCC 50MG EXT REL TAB PO SCH (08:20)
[2021-11-18] MEDS: FUROSEMIDE 40 MG TAB PO SCH (08:20)
[2021-11-18] MEDS: VALSARTAN/SACUBITRIL 26/24MG TAB PO SCH ×2 (08:21→20:26)
[2021-11-18] MEDS: dexAMETHasone 6 MG in SYRINGE 0 ML IV SCH (08:21)
[2021-11-18] MEDS: LEVOTHYROXINE SODIUM 75 MCG TABLET PO SCH (08:21)
[2021-11-18] MEDS ORDERED: MICONAZOLE NITRATE POWDER 43 GM EXT PRN (10:14)
[2021-11-18] MEDS: REMDESIVIR 100 MG in SODIUM CHLORIDE 0.9% 230 ML IV SCH (13:13)
--- NOTE | 2021-11-18 13:40 | Hospitalist Progress Note ---
Date of Service November 18, 2021 Assessment & Plan (1) COVID-19: Plan: Covid-19 pneumonia. Positive in emergency department. Given the that she has felt unwell with known COVID-19 symptoms since and the fact that potential contacts have not test for COVID-19, it is difficult to determine what day of illness this is. - CXR on 09/16 with bilateral multifocal pneumonia. - Remains on 2L nasal cannula. - Continue azithromycin (End date: 09/18/2022) - Continue Decadron 6 mg IV daily. - Continue Remdesivir - Lovenox 40 mg SC Q12 for thromboprophylaxis (2) Hypoxemia: Plan: Acute hypoxemic respiratory distress. (3) Elevated troponin: Plan: Demand ischemia. Troponin was 0.17 in ED. Repeat down to 0.07. Patient denies chest pain, palpitations. - Acute [place] ruled out (4) Heart failure with reduced ejection fraction: Plan: Most recent echo is from 2019 and shows EF of 15-20%. She does not appear to be volume overloaded, skin is warm and dry. JVD was not appreciated on exam, 2+ edema appreciated which is her baseline. - Continue Entresto, metoprolol. - Daily weights, strict I/Os - Low sodium/heart healthy diet. - Continue home furosemide 40 mg PO daily -> Weight appears stable during admission at ~80 kg. (5) Acute kidney injury: Plan: Acute on chronic. BUN 48, Cr 1.31, increased from 28 and .99 in October 2021. - Avoid nephrotoxic medications. - Monitor -> Presently up to 1.2 today. (6) Transaminitis: Plan: AST 107, ALT 79 both acutely elevated from October 2021 (AST 22, ALT 38). Patient does not have a history of elevated LFTs. - Improving; possible due to viral hepatitis from Covid-19. - Repeat LFTs in AM (7) Chronic kidney disease (CKD), stage III (moderate): Plan: See above 'acute kidney injury'. (8) Hypertension: Plan: BP today is 107/75. - Continue metoprolol XR daily & Entresto (9) Hypothyroidism: Plan: TSH is normal. - Continue levothyroxine 75 mcg (10) DVT prophylaxis: Plan: Lovenox 40 mg SC Q12h Admission and Anticipated Discharge Date Admission Date: November 16, 2021 Subjective Doing well today. No major issues. Does feel a need to void, but has been trying all morning and unable to do so per RN. Reports no fevers/chills, chest pain, shortness of breath, abdominal pain, nausea, or vomiting. Physical Exam Constitutional: WD/WN, vitals as above Eyes: EOM intact bilaterally; no conjunctival abnormality ENMT: external ear and nose normal, oropharynx normal Neck: trachea midline, no thyromegaly normal visual inspection Respiratory: normal respiratory effort, lungs clear to auscultation no respiratory distress Cardiovascular: RRR, no murmur, no edema Gastrointestinal (Abdomen): Inspection/Auscultation: abdomen normal to inspection; abdomen not distended Musculoskeletal: no cyanosis or clubbing, extremities motor strength 5/5 Skin: no rashes, warm and dry Neurologic: moves all extremities and awake Psychiatric: Orientation: alert, oriented to person and cooperative Results & Data Results & Data ([facility]) Vital Signs (Past 12 Hours) Vital Signs Temp Pulse Pulse Resp BP Pulse Ox 11/18/21 11:27 35.6 C L 68 20 107/74 96 11/18/21 08:58 67 11/18/21 07:47 35.5 C L 69 20 96/66 L 98 11/18/21 07:40 67 11/18/21 03:46 35.6 C L 80 18 110/74 96 PG Care Time/CCT Total # of Minutes Spent Total Time Spent with Patient: Total time spent is greater than 50% in coordination of care (as documented) at patient's floor/unit and/or counseling patient: Coding Level of Care Code 13413 Subseq Hosp Care Lvl 3 Diagnoses COVID-19 U07.1 Hypoxemia R09.02 Elevated troponin R77.8 Heart failure with reduced ejection fraction I50.20 Acute kidney injury N17.9 Transaminitis R74.01 Chronic kidney disease (CKD), stage III (moderate) N18.3 Hypertension I10 Hypothyroidism E03.9 DVT prophylaxis Z29.9
[2021-11-18] MEDS: ENOXAPARIN INJ 40 MG/0.4 ML SYR SQ SCH (20:26)
[2021-11-19] MEDS ORDERED: METOPROLOL TARTRATE 1 MG/ML VIAL IV ONE (09:08)
[2021-11-19] MEDS: dexAMETHasone 6 MG in SYRINGE 0 ML IV SCH (09:54)
[2021-11-19] MEDS: METOPROLOL SUCC 50MG EXT REL TAB PO SCH (09:54)
[2021-11-19] MEDS: VALSARTAN/SACUBITRIL 26/24MG TAB PO SCH ×2 (09:54→20:03)
[2021-11-19] MEDS: LEVOTHYROXINE SODIUM 75 MCG TABLET PO SCH (09:55)
[2021-11-19 11:06] LABS: Hematocrit (blood only) 39.8 % (37-47); Hemoglobin 12.7 g/dL (12.0-16.0); Mean Corpuscular Hemoglobin 29.9 pg (25-34); Mean Corpuscular Hgb Conc 31.9 g/dL (32-36); Mean Corpuscular Volume 93.6 fL (80-100); Mean Platelet Volume 11.8 fL (7.4-10.4); Platelet Count 240 K/uL (130-400); RDW Coefficient of Variation 15.6 % (11.5-14.5); RDW Standard Deviation 53.4 fL (36.4-46.3); Red Blood Count 4.25 M/uL (4.2-5.4); White Blood Count 9.05 K/uL (4.8-10.8)
[2021-11-19 11:34] LABS: BUN Creatinine Ratio 52.6 (10-20); Calcium 8.4 mg/dl (8.5-10.1); Creatinine Clr Calc Pharmacy 42.2 ml/min; Est GFR (Non-African American) 54.4 ml/min; Magnesium 1.9 mg/dl (1.7-2.4); Potassium 3.9 mmol/L (3.5-5.1)
[2021-11-19] MEDS: REMDESIVIR 100 MG in SODIUM CHLORIDE 0.9% 230 ML IV SCH (12:36)
--- NOTE | 2021-11-19 13:16 | Hospitalist Progress Note ---
Date of Service November 19, 2021 Assessment & Plan (1) COVID-19: Plan: Covid-19 pneumonia. Positive in emergency department. Given the that she has felt unwell with known COVID-19 symptoms since and the fact that potential contacts have not test for COVID-19, it is difficult to determine what day of illness this is. - CXR on 09/16 with bilateral multifocal pneumonia. - Remains on 2L nasal cannula. - Finished azithromycin (End date: 09/18/2022) - Continue Decadron 6 mg IV daily. - Continue Remdesivir - Lovenox 40 mg SC Q12 for thromboprophylaxis (2) Hypoxemia: Plan: Acute hypoxemic respiratory distress. (3) Elevated troponin: Plan: Demand ischemia. Troponin was 0.17 in ED. Repeat down to 0.07. Patient denies chest pain, palpitations. - Acute [place] ruled out (4) Heart failure with reduced ejection fraction: Plan: Most recent echo is from 2019 and shows EF of 15-20%. She does not appear to be volume overloaded, skin is warm and dry. JVD was not appreciated on exam, 2+ edema appreciated which is her baseline. - Continue Entresto, metoprolol. - Daily weights, strict I/Os - Low sodium/heart healthy diet. - Continue home furosemide 40 mg PO daily -> Weight appears stable during admission at ~80 kg. (5) Acute kidney injury: Plan: Acute on chronic. BUN 48, Cr 1.31, increased from 28 and 0.99 in October 2021. - Avoid nephrotoxic medications. - Monitor -> Presently 1.0 today. (6) Transaminitis: Plan: AST 107, ALT 79 both acutely elevated from October 2021 (AST 22, ALT 38). P athetal does not have a history of elevated LFTs. - Improving; possibly due to viral hepatitis from Covid-19. - Repeat LFTs in AM (7) Chronic kidney disease (CKD), stage III (moderate): Plan: See above 'acute kidney injury'. (8) Hypertension: Plan: BP today is 120/80. - Continue metoprolol XR daily & Entresto (9) Hypothyroidism: Plan: TSH is normal. - Continue levothyroxine 75 mcg (10) DVT prophylaxis: Plan: Lovenox 40 mg SC Q12h Admission and Anticipated Discharge Date Admission Date: November 16, 2021 Subjective Sleepy today. No major change. Breathing comfortably. Reports no fevers/chills, chest pain, shortness of breath, abdominal pain, nausea, or vomiting. Physical Exam Constitutional: WD/WN, vitals as above Eyes: EOM intact bilaterally; no conjunctival abnormality ENMT: external ear and nose normal, oropharynx normal Neck: trachea midline, no thyromegaly normal visual inspection Respiratory: normal respiratory effort, lungs clear to auscultation no respiratory distress Cardiovascular: RRR, no murmur, no edema Gastrointestinal (Abdomen): Inspection/Auscultation: abdomen normal to inspect ion; abdomen not distended Musculoskeletal: no cyanosis or clubbing, extremities motor strength 5/5 Skin: no rashes, warm and dry Neurologic: moves all extremities and awake Psychiatric: Orientation: alert, oriented to person and cooperative Results & Data Results & Data ([facility]) Vital Signs (Past 12 Hours) Vital Signs Temp Pulse Pulse Resp BP Pulse Ox 11/19/21 11:31 35.5 C L 92 H 20 123/82 95 11/19/21 08:00 77 11/19/21 07:15 35.6 C L 82 20 108/73 94 11/19/21 04:00 35.5 C L 87 18 114/76 91 PG Care Time/CCT Total # of Minutes Spent Total Time Spent with Patient: Total time spent is greater than 50% in coordination of care (as documented) at patient's floor/unit and/or counseling patient: Coding Level of Care Code 26647 Subseq Hosp Care Lvl 2 Diagnoses COVID-19 U07.1 Hypoxemia R09.02 Elevated troponin R77.8 Heart failure with reduced ejection fraction I50.20 Acute kidney injury N17.9 Transaminitis R74.01 Chronic kidney disease (CKD), stage III (moderate) N18.3 Hypertension I10 Hypothyroidism E03.9 DVT prophylaxis Z29.9
[2021-11-19] MEDS: ENOXAPARIN INJ 40 MG/0.4 ML SYR SQ SCH (20:03)
[2021-11-20 06:14] LABS: Hematocrit (blood only) 42.5 % (37-47); Hemoglobin 13.6 g/dL (12.0-16.0); Mean Corpuscular Volume 93.8 fL (80-100); Platelet Count 310 K/uL (130-400); RDW Coefficient of Variation 15.8 % (11.5-14.5); RDW Standard Deviation 54.1 fL (36.4-46.3); Red Blood Count 4.53 M/uL (4.2-5.4); White Blood Count 9.76 K/uL (4.8-10.8)
[2021-11-20 06:51] LABS: Albumin Level 3.1 gm/dl (3.4-5.0); BUN Creatinine Ratio 44.6 (10-20); Bilirubin,Total 1.2 mg/dl (0.2-1.0); Calcium 8.7 mg/dl (8.5-10.1); Creatinine Clr Calc Pharmacy 40.5 ml/min; Est GFR (Non-African American) 51.8 ml/min; Total Protein 6.1 gm/dl (6.0-8.3)
[2021-11-20] MEDS: dexAMETHasone 6 MG in SYRINGE 0 ML IV SCH (08:52)
[2021-11-20] MEDS: FUROSEMIDE 40 MG TAB PO SCH (08:53)
[2021-11-20] MEDS: LEVOTHYROXINE SODIUM 75 MCG TABLET PO SCH (08:54)
[2021-11-20] MEDS: VALSARTAN/SACUBITRIL 26/24MG TAB PO SCH ×2 (08:54→20:42)
[2021-11-20] MEDS: METOPROLOL SUCC 50MG EXT REL TAB PO SCH (08:54)
[2021-11-20 09:16] LABS: Potassium 3.9 mmol/L (3.5-5.1)
[2021-11-20] MEDS: REMDESIVIR 100 MG in SODIUM CHLORIDE 0.9% 230 ML IV SCH (11:27)
[2021-11-20 12:02] LABS: C Reactive Protein 10.64 mg/dl (0-0.5)
[2021-11-20 12:39] LABS: C Reactive Protein 5.38 mg/dl (0-0.5)
--- NOTE | 2021-11-20 14:44 | Hospitalist Progress Note ---
Date of Service November 20, 2021 Assessment & Plan (1) COVID-19: Plan: Covid-19 pneumonia. Positive in emergency department. Given the that she has felt unwell with known COVID-19 symptoms since and the fact that potential contacts have not test for COVID-19, it is difficult to determine what day of illness this is. - CXR on 09/16 with bilateral multifocal pneumonia. - Remains on 1L nasal cannula. - Finished azithromycin (End date: 09/18/2022) - Continue Decadron 6 mg IV daily. - Continue Remdesivir - Lovenox 40 mg SC Q12 for thromboprophylaxis - 2-step ordered today for possible home O2. (2) Urinary retention: Plan: Required Olson on 11/18 for two, separate episodes of urinary retention > 500 mL of urine. Per RN, appeared to have some level of uterine prolapse. Discussed wi [facility] steamblaster who report that an office-fitted pesary may help this. Unable to fit on in the hospital setting. - Continue Olson on discharge; steamblaster follow-up. (3) Hypoxemia: Plan: Acute hypoxemic respiratory distress. (4) Elevated troponin: Plan: Demand ischemia. Troponin was 0.17 in ED. Repeat down to 0.07. Patient denies chest pain, palpitations. - Acute [place] ruled out (5) Heart failure with reduced ejection fraction: Plan: Most recent echo is from 2019 and shows EF of 15-20%. She does not appear to be volume overloaded, skin is warm and dry. JVD was not appreciated on exam, 2+ edema appreciated which is her baseline. - Continue Entresto, metoprolol. - Daily weights, strict I/Os - Low sodium/heart healthy diet. - Continue home furosemide 40 mg PO daily -> Weight appears stable during admission at ~80 kg. (6) Acute kidney injury: Plan: Acute on chronic. BUN 48, Cr 1.31, increased from 28 and 0.99 in October 2021. - Avoid nephrotoxic medications. - Monitor -> Presently 1.0 today. (7) Transaminitis: Plan: AST 107, ALT 79 both acutely elevated from October 2021 (AST 22, ALT 38). Patient does not have a history of elevated LFTs. - Resolved; due to viral hepatitis from Covid-19. (8) Chronic kidney disease (CKD), stage III (moderate): Plan: See above 'acute kidney injury'. (9) Hypertension: Plan: BP today is 120/80. - Continue metoprolol XR daily & Entresto (10) Hypothyroidism: Plan: TSH is normal. - Continue levothyroxine 75 mcg (11) DVT prophylaxis: Plan: Lovenox 40 mg SC Q12h Admission and Anticipated Discharge Date Admission Date: November 16, 2021 Subjective Doing well overall. Wants to go home. Reports no fevers/chills, chest pain, shortness of breath, abdominal pain, nausea, or vomiting. Physical Exam Constitutional: WD/WN, vitals as above Eyes: EOM intact bilaterally; no conjunctival abnormality ENMT: external ear and nose normal, oropharynx normal Neck: trachea midline, no thyromegaly normal visual inspection Respiratory: normal respiratory effort, lungs clear to auscultation no respiratory distress Cardiovascular: RRR, no murmur, no edema Gastrointestinal (Abdomen): Inspection/Auscultation: abdomen normal to inspection; abdomen not distended Musculoskeletal: no cyanosis or clubbing, extremities motor strength 5/5 Skin: no rashes, warm and dry Neurologic: moves all extremities and awake Psychiatric: Orientation: alert, oriented to person and cooperative Results & Data Results & Data ([facility]) Vital Signs (Past 12 Hours) Vital Signs Temp Pulse Pulse Resp BP Pulse Ox 11/20/21 14:00 82 20 122/75 91 11/20/21 07:41 36.5 C 98 H 17 121/79 94 11/20/21 06:26 95 H 11/20/21 03:20 37 C 95 H 16 111/74 94 PG Care Time/CCT Total # of Minutes Spent Total Time Spent with Patient: Total time spent is greater than 50% in coordination of care (as documented) at patient's floor/unit and/or counseling patient: Coding Level of Care Code 66634 Subseq Hosp Care Lvl 3 Diagnoses COVID-19 U07.1 Hypoxemia R09.02 Elevated troponin R77.8 Heart failure with reduced ejection fraction I50.20 Acute kidney injury N17.9 Transaminitis R74.01 Chronic kidney disease (CKD), stage III (moderate) N18.3 Hypertension I10 Hypothyroidism E03.9 DVT prophylaxis Z29.9 Urinary retention R33.9
[2021-11-20] MEDS: ENOXAPARIN INJ 40 MG/0.4 ML SYR SQ SCH (20:42)
[2021-11-21] MEDS: dexAMETHasone 6 MG in SYRINGE 0 ML IV SCH (08:57)
[2021-11-21] MEDS: METOPROLOL SUCC 50MG EXT REL TAB PO SCH (09:03)
[2021-11-21] MEDS: FUROSEMIDE 40 MG TAB PO SCH (09:04)
[2021-11-21] MEDS: LEVOTHYROXINE SODIUM 75 MCG TABLET PO SCH (09:04)
[2021-11-21] MEDS: VALSARTAN/SACUBITRIL 26/24MG TAB PO SCH (09:04)
--- NOTE | 2021-11-21 13:20 | Discharge Summary ---
Date of Service November 21, 2021 Admission HPI Per Admitting Provider Patient is an 81 y/o female with a PMH of HFrEF with EF 15-20%, CKD3, HTN, and hypothyroidism who presents today from home due to hypoxemia x2 days. Patient has been feeling generally unwell since around [place], citing fatigue, sore throat, and cough as her symptoms. She was not tested for COVID-19, and her symptoms remained mild, as she eventually recovered over the past week at home without medication. Pt lives at home with her son, who was sick with similar symptoms last week, but has recovered without complications. He was not tested for COVID-19. Patient was quarantined on a separate floor from her son, but is not vaccinated. Over the past two days experienced SOB and extreme fatigue. Her son is at bedside and notes she has seemed confused as well. Patient denies fever/chills, sinus congestion, rhinorrhea, N/V/D, weight gain, orthopnea, and paroxysmal nocturnal dyspnea. Her son has been monitoring her oxygen saturations at home and notes they average in the 80s on RA. She is not on supplemental O2 at home. Patient's SpO2 upon arrival to ED was 81% on RA. She was placed on 2L NC and improved to 99%. Patient's COVID-19 test in ED was positive. Given the length of her illness and the fact that potential contacts have not test for COVID-19, it is difficult to determine what day of illness this is. Principal Diagnosis Covid-19 pneumonia Urinary retention Discharge Exam Constitutional WD/WN, vitals as above Eyes EOM intact bilaterally; no conjunctival abnormality ENMT external ear and nose normal, oropharynx normal Neck trachea midline, no thyromegaly normal visual inspection Respiratory normal respiratory effort, lungs clear to auscultation no respiratory distress Cardiovascular RRR, no murmur, no edema Gastrointestinal (Abdomen) Inspection/Auscultation: abdomen normal to inspection; abdomen not distended Musculoskeletal no cyanosis or clubbing, extremities motor strength 5/5 Skin no rashes, warm and dry Neurologic moves all extremities and awake Psychiatric Orientation: alert, oriented to person and cooperative Discharge Data Allergies Allergy/AdvReac Type Severity Reaction Status Date / Time peanut Allergy Severe Anaphylaxis Verified 11/16/21 13:16 milk Allergy Intermediate Bloating/Di Verified 11/16/21 13:16 ahrea alcohol Allergy Mild skin Verified 11/16/21 13:16 flushing, red rash Iodinated Contrast Media Allergy Unknown Unknown Verified 11/16/21 13:16 Penicillins AdvReac Intermediate GI reaction Verified 11/16/21 13:16 Consultations 11/16/21 12:59 ED Decision to Admit Stat Hospital Course (1) COVID-19: Covid-19 pneumonia. Positive in emergency department. Given the that she has felt unwell with known COVID-19 symptoms since and the fact that potential contacts have not test for COVID-19, it is difficult to determine what day of illness this is. - CXR on 09/16 with bilateral multifocal pneumonia. - Remains on 1L nasal cannula. - Finished azithromycin (End date: 09/18/2022) - Continue Decadron 6 mg IV daily. - Continue Remdesivir - Lovenox 40 mg SC Q12 for thromboprophylaxis - 2-step ordered for home O2. (2) Urinary retention: Required Olson on 11/18 for two, separate episodes of urinary retention > 500 mL of urine. Per RN, appeared to have some level of uterine prolapse. Discussed with [facility] paper sorter who report that an office-fitted pesary may help this. Unable to fit on in the hospital setting. - Continue Olson on discharge; paper sorter follow-up. - Ask lecturer in computer science to help arrange f/u. (3) Hypoxemia: Acute hypoxemic respiratory distress. (4) Elevated troponin: Demand ischemia. Troponin was 0.17 in ED. Repeat down to 0.07. Patient d enies chest pain, palpitations. - Acute [place] ruled out (5) Heart failure with reduced ejection fraction: Most recent echo is from 2019 and shows EF of 15-20%. She does not appear to be volume overloaded, skin is warm and dry. JVD was not appreciated on exam, 2+ edema appreciated which is her baseline. - Continue Entresto, metoprolol. - Daily weights, strict I/Os - Low sodium/heart healthy diet. - Continue home furosemide 40 mg PO daily -> Weight appears stable during admission at ~80 kg. (6) Acute kidney injury: Acute on chronic. BUN 48, Cr 1.31, increased from 28 and 0.99 in October 2021. - Avoid nephrotoxic medications. - Monitor -> Presently 1.0. (7) Transaminitis: AST 107, ALT 79 both acutely elevated from October 2021 (AST 22, ALT 38). Patient does not have a history of elevated LFTs. - Resolved; likely due to viral hepatitis from Covid-19. (8) Chronic kidney disease (CKD), stage III (moderate): See above 'acute kidney injury'. (9) Hypertension: BP today is 120/80. - Continue metoprolol XR daily & Entresto (10) Hypothyroidism: TSH is normal. - Continue levothyroxine 75 mcg (11) DVT prophylaxis: Lovenox 40 mg SC Q12h Total Time Total Time Spent Total Time Spent (In Minutes): 35 Discharge Plan Discharge Items Patient Disposition: Home - Home Health Services Reason For Visit: HYPOXEMIA, COVID (+) Discharge Diagnosis: Covid-19 pneumonia Activity: Resume your previous activity Non-emergency contact: Primary Care Provider Call non-emergency contact if: your symptoms worsen Follow-up/Referrals: Leonor Ken MD [Primary Care Provider] - 12/01/21 11:15 am Diet: Heart Healthy Addtl Attending Provider Instructions: Ms. Ramirez, You were admitted to the hospital with Covid-19 pneumonia. You did well on a low level of oxygen needs, and we are getting you out of the hospital today with home health and in the care of your son. You don't need any special medications at this point as you are recovering. Just take it easy and gradually increase your activity in the coming days. Please see Dr. Ken in the clinic in 1-2 weeks to ensure you are doing well. Pending Studies at Discharge: No Stand-Alone Forms: My [facility] App in the Air, Smoking Cessation Medications and DC Order Prescriptions: Continued metoprolol succinate 50 mg tablet extended release 24 hr 50 mg PO DAILY Qty: 90 RF: 3 Entresto 24-26 mg tablet 1 tab PO BID Qty: 180 RF: 3 furosemide 40 mg tablet 40 mg PO QAM Qty: 90 RF: 3 levothyroxine [Synthroid] 75 mcg tablet 75 mcg PO DAILY Qty: 90 RF: 3 Discharge Orders: Discharge Order (Routine); Ordered 11/21/21 Ordered By: Livan Posey Admission Data Admit Date/Time: 11/16/21 14:21 Attending Provider: Livan Posey Admit Provider: Aldo Sarmiento Primary Care Provider: Leonor Ken Other Providers: Livan Posey Other Interventions: Discharge Summary Assessment (RN) Last Done: 11/21/21 12:34 Coding Level of Care Code D/C DAY MANAGEMENT >30 MINS Diagnoses COVID-19 U07.1 Urinary retention R33.9 Hypoxemia R09.02 Elevated troponin R77.8 Heart failure with reduced ejection fraction I50.20 Acute kidney injury N17.9 Transaminitis R74.01 Chronic kidney disease (CKD), stage III (moderate) N18.3 Hypertension I10 Hypothyroidism E03.9 DVT prophylaxis Z29.9
== END 2021-11-21 18:03 | disposition home health service (06) | DRG 177 ==
LOC: ED 10:50 → 2W 14:21 → SUATTDRO 14:21 → 2W 16:48